=== PATIENT | male | born 1995 | race Caucasian/White ===

== ENCOUNTER 2024-04-12 11:16 | Emergency (ER) | payer OTHER, SELFPAY ==
[2024-04-12 11:21] VITALS: BP 137/87; PULSE 74; RESP 18; TEMP 37.2; O2SAT 99; BMI 32.5
[2024-04-12] MEDS: TET,DIPH,PERTUSS(ACELL),VAC/PF 0.5 ML SYRINGE IM (11:47)
--- NOTE | 2024-04-12 11:47 | ED.WOUNDLAC ---
HPI - Wound/Laceration <Willie Murdock PA-C - Last Filed: 04/12/24 12:49> General Chief Complaint: Wound/Laceration Stated Complaint: Head injury Time Seen by Provider: 04/12/24 11:40 History of Present Illness HPI narrative: 29-year-old male with past medical history IBD presents to the ED status post a head injury sustained just prior to arrival. Patient states he was working with a keg on a ester, when the ester accidentally ricocheted and hit his head. Patient complains of a laceration to the right, front side of his scalp. No loss of consciousness. Patient is not on blood thinners. Vision is unchanged. Denies fever, chills, chest pain, shortness of breath, lightheadedness, dizziness, syncope, nausea, vomiting. Tetanus status is unknown. Related Data Allergies Allergy/AdvReac Type Severity Reaction Status Date / Time No Known Drug Allergies Allergy Verified 04/12/24 11:20 Review of Systems <Willie Murdock PA-C - Last Filed: 04/12/24 12:49> Constitutional Constitutional: Denies chills, Denies fatigue, Denies fever(s), Denies frequent falls, Denies lethargy and Denies weakness Eyes Eyes: Denies change in vision, Denies eye discharge, Denies irritation and Denies loss of vision ENT Ears, Nose, Mouth, and Throat: Denies change in voice, Denies dizziness, Denies neck pain, Denies sore throat and Denies throat swelling Cardiovascular Cardiovascular: Denies chest pain, Denies irregular heart rhythm, Denies lightheadedness, Denies palpitations, Denies dyspnea, Denies dyspnea on exertion and Denies orthopnea Respiratory Respiratory: Denies cough, Denies dyspnea, Denies dyspnea on exertion and Denies wheezing Gastrointestinal Gastrointestinal: Denies abdominal pain, Denies change in bowel habits, Denies diarrhea, Denies nausea and Denies vomiting Musculoskeletal Musculoskeletal: Denies neck pain and Denies numbness Integumentary/Breasts Skin/Breast: Denies pruritus, Denies erythema, Denies rash and Denies wounds Comments: Scalp laceration Neurologic Neurologic: Denies behavioral changes, Denies confusion, Denies dizziness, Denies frequent falls, Denies loss of vision, Denies numbness and Denies weakness Psychiatric Psychiatric: Denies anxiety, Denies behavioral changes, Denies confusion, Denies depression, Denies homicidal ideation and Denies suicidal ideation Endocrine Endocrine: Denies fatigue, Denies flushing and Denies palpitations Hematologic/Lymphatic Hematologic/Lymphatic: Denies easy bruising Allergic/Immunologic Allergic/Immunologic: Denies urticaria, Denies throat swelling and Denies wheezing Patient History <Willie Murdock PA-C - Last Filed: 04/12/24 12:49> Social History Smoking Status: Never smoker Smoking Status: Never smoker alcohol intake frequency: other Substance Use Type: does not use Exam <Willie Murdock PA-C - Last Filed: 04/12/24 12:49> Narrative Exam Narrative: Const General:?cooperative, healthy appearing and comfortable [facility] Head:? There is a 2.5 cm linear laceration to the right front of the scalp; bleeding is controlled with pressure; no hematoma; no skull depressions Ears:?hearing grossly normal bilaterally Nose:?external nose normal Face and sinus:?normal facial exam and sinuses nontender Mouth:?oral mucosae normal Throat:?posterior oropharynx normal Eyes General:?appearance normal, both eyes and all related structures; vision grossly intact Neck Neck:?normal visual inspection and no lymphadenopathy noted Resp Effort & Inspection:?normal respiratory effort Auscultation:?clear to auscultation bilaterally Cardio Rate:?regular rate Rhythm:?regular rhythm Neuro General:?patient alert, patient awake and patient oriented x3 Initial Vital Signs Initial Vital Signs: Vital Signs Temperature 99.0 F 04/12/24 11:21 Pulse Rate 74 04/12/24 11:21 Respiratory Rate 18 04/12/24 11:21 Blood Pressure 137/87 04/12/24 11:21 Pulse Oximetry 99 04/12/24 11:21 Oxygen Delivery Method Room Air 04/12/24 11:21 <Suzy Phillip DO - Last Filed: 04/12/24 18:16> Initial Vital Signs Initial Vital Signs: Vital Signs Temperature 99.0 F 04/12/24 11:21 Pulse Rate 74 04/12/24 11:21 Respiratory Rate 18 04/12/24 11:21 Blood Pressure 137/87 04/12/24 11:21 Pulse Oximetry 99 04/12/24 11:21 Oxygen Delivery Method Room Air 04/12/24 11:21 Procedures <Willie Murdock PA-C - Last Filed: 04/12/24 12:49> Laceration Repair Laceration 1: Site: scalp Side (If applicable): right Size (cm): 2.5 Description: linear Pre-repair: wound explored, irrigated extensively and deep structures intact Skin layer closed with: livia Number of sutures: 4 Course <Willie Murdock PA-C - Last Filed: 04/12/24 12:49> Orders Ordered: Discontinued Medications Diphtheria/Tetanus/Acell Pertussis (Tet,Diph,Pertuss(Acell),Vac/Pf 0.5 Ml Syringe) 0.5 ml IM .ONCE ONE Stop: 04/12/24 11:42 Last Admin: 04/12/24 11:47 Dose: 0.5 ml Documented By: JJanis Vital Signs Vital signs: Vital Signs - 8 hr 04/12/24 11:21 04/12/24 12:36 Temperature 99.0 F Pulse Rate 74 84 Respiratory Rate 18 20 Blood Pressure 137/87 137/76 Pulse Oximetry 99 100 Oxygen Delivery Method Room Air Room Air <Suzy Phillip DO - Last Filed: 04/12/24 18:16> Orders Ordered: Discontinued Medications Diphtheria/Tetanus/Acell Pertussis (Tet,Diph,Pertuss(Acell),Vac/Pf 0.5 Ml Syringe) 0.5 ml IM .ONCE ONE Stop: 04/12/24 11:42 Last Admin: 04/12/24 11:47 Dose: 0.5 ml Documented By: JG Vital Signs Vital signs: Vital Signs - 8 hr 04/12/24 11:21 04/12/24 12:36 Temperature 99.0 F Pulse Rate 74 84 Respiratory Rate 18 20 Blood Pressure 137/87 137/76 Pulse Oximetry 99 100 Oxygen Delivery Method Room Air Room Air MDM - Wound/Laceration <BILL Suarez Last Filed: 04/12/24 12:49> MDM Narrative Medical decision making narrative: 29-year-old male with past medical history IBD presents to the ED status post a head injury sustained just prior to arrival. Patient appears to have a 2.5 cm scalp laceration. Bleeding is controlled with pressure. Physical exam not consistent with skull fracture/brain bleed. Based on physical exam and mechanism of injury, no indication for imaging indicated at this time. Laceration was repaired with 4 livia. Bowdle will need to be removed in 7 days. Tetanus was updated. Signs of infection, wound care discussed with patient. Possibility of concussion, symptoms discussed with patient. Recommend follow-up with PCP. ED return precautions discussed with patient. Patient verbalized understanding. Medical records reviewed: Yes Discharge Plan Departure Patient Disposition: Home Clinical Impression: Laceration Instructions: DI for Laceration Repair -- Livia Activity Restrictions/Additional Instructions: You were evaluated in the ED today for a head injury. Your laceration was repaired with 4 livia which will need to be removed in 7 days. You may return to the ED or go to a walk-in clinic or your PCP's office for staple removal. Please watch for signs of infection including worsening redness, pain, swelling, warmth, discharge. Return to the ED if you note any signs of infection. Your tetanus was updated today, which is good for the next 10 years. With head injuries, there is a possibility of a concussion and you might experience symptoms such as intermittent nausea, vomiting, headaches, fatigue, increased sleepiness, depression, agitation. Physical rest as well as cognitive rest which involves minimal use of screens, books is recommended for past recovery from concussions. You may take Tylenol for pain. Please follow-up with your PCP soon as possible. Stand Alone Forms: Patient Portal/API ED Sign-out <Suzy Phillip DO - Last Filed: 04/12/24 18:16> Cosign ED Attending Ivanna Attestation: I was immediately available in the department for consultation.
[2024-04-12 12:36] VITALS: BP 137/76; PULSE 84; RESP 20; O2SAT 100
== END 2024-04-12 12:38 | disposition home or self-care (01) ==
PROVIDERS: Emergency Provider Student in an Organized Health Care Education/Training Program
DX: S01.01XA Laceration without foreign body of scalp, initial encounter (principal); W22.8XXA Striking against or struck by other objects, initial encounter; Z23 Encounter for immunization
CPT/HCPCS: 12001; 90471; 99283; 90715